=== PATIENT | female | born 1960 ===

== ENCOUNTER 2024-09-09 06:02 | Day surgery (SDC) | payer OTHER ==
[2024-09-08 13:11] VITALS: BP 129/82
[~2024-09-09] VITALS: Ht 157.5 cm; Wt 95.3 kg
[~2024-09-09 06:02] MED LIST: COZAAR25 MG PO
[2024-09-09] MEDS ORDERED: METRONIDAZOLE/SODIUM CHLORIDE 500 MG/100 ML PIGGYBACK IV ONE (08:40)
[2024-09-09] MEDS ORDERED: CEFTRIAXONE SODIUM 2,000 MG VIAL ONE (08:40)
[2024-09-09] MEDS ORDERED: POVIDONE-IODINE 118 ML BOTT TOP ONE (09:30)
[2024-09-09] MEDS ORDERED: DIBUCAINE 30 GM TUBE ONE (09:30)
[2024-09-09] MEDS ORDERED: LIDOCAINE HCL 1%/EPINEPHRINE 20ML VIAL IJ ONE (09:30)
[2024-09-09] MEDS ORDERED: HEMOSTATIC MATRIX 1 KIT KIT TOP ONE (09:30)
[2024-09-09] MEDS ORDERED: BUPIVACAINE HCL/MPF 0.5% 30ML VIAL ONE (09:30)
[2024-09-09] MEDS ORDERED: MORPHINE SULFATE 4 MG/ML VIAL IV ONE (12:50)
== END 2024-09-09 15:40 | disposition home or self-care (01) ==
LOC: CIR.AMB 06:02
PROVIDERS: ATTEND Colon & Rectal Surgery
DX: K64.2 Third degree hemorrhoids (principal); K64.4 Residual hemorrhoidal skin tags